=== PATIENT | male | born 1960 | race Caucasian/White ===

== ENCOUNTER 2016-08-28 00:03 | Emergency (ER) | payer OTHER | END 2016-08-28 04:00 | disposition home or self-care (01) | LOC: ER1 00:03 | DX: K04.7 Periapical abscess without sinus (principal); E07.9 Disorder of thyroid, unspecified; G40.909 Epilepsy, unspecified, not intractable, without status epilepticus; Z88.5 Allergy status to narcotic agent; Z79.899 Other long term (current) drug therapy; Z85.528 Personal history of other malignant neoplasm of kidney | CPT/HCPCS: 41800; 99282 ==

== ENCOUNTER 2021-10-13 12:33 | Inpatient (IN) | payer OTHER ==
[~2021-10-13] VITALS: Ht 172.7 cm; Wt 84.8 kg
[~2021-10-13 12:33] MED LIST: CEFEPIME HCL2 GM INJ; DILANTIN100 MG PO; DURAGESIC1 EAC3 TD; KLONOPIN TAB 00.5 MG PO; MEGACE 400400 MG/10 PO; MEGACE TAB 40 M40 MG PO; MULTI-VITAMIN1 EACH PO; OXYCODONE HCL15 MG PO; PHENOBARBITAL32.4 MG PO; PROAIR HFA8.5 GM INH; ROPINIROLE HCL2 MG PO; SENNA8.6 MG PO; SYNTHROID100 MCG PO; VANCOMYCIN1 GM/2002 IV
[2021-10-13 13:24] LABS: HEMOGLOBIN 14.3 gm/dl (14.0-17.5); RED BLOOD COUNT 4.36 M/UL (4.20-5.50); WHITE BLOOD COUNT 16.6 K/UL (4.5-11.0)
[2021-10-13 13:54] LABS: BUN/CREATININE RATIO 30 (0-10)
[2021-10-14] MEDS ORDERED: GABAPENTIN600 MG PO (02:21)
[2021-10-14 02:42] LABS: HEMOGLOBIN 11.8 gm/dl (14.0-17.5); RED BLOOD COUNT 3.69 M/UL (4.20-5.50); WHITE BLOOD COUNT 6.6 K/UL (4.5-11.0)
[2021-10-14 02:44] LABS: BUN/CREATININE RATIO 26 (0-10)
[2021-10-14] MEDS ORDERED: ACETAMINOPHEN500 MG PO (11:19)
[2021-10-14] MEDS ORDERED: IBU800 MG PO (11:20)
[2021-10-14] MEDS ORDERED: HYDROXYZINE HCL25 MG PO (11:20)
[2021-10-14] MEDS ORDERED: METFORMIN HCL500 MG PO (11:22)
[2021-10-14] MEDS ORDERED: NICODERM CQ1 EAC2 TD (11:23)
[2021-10-14] MEDS ORDERED: ONDANSETRON ODT8 MG PO (11:24)
[2021-10-14] MEDS ORDERED: MECLIZINE HCL25 MG PO (11:24)
[2021-10-14 14:56] LABS: CANDIDA ALBICANS Not Detected (Negative); CANDIDA KRUSEI Not Detected (Negative); CANDIDA TROPICALIS Not Detected (Negative); ESCHERICHIA COLI Not Detected (Negative); HAEMOPHILUS INFLUENZAE Not Detected (Negative); KLEBSIELLA OXYTOCA Not Detected (Negative); KLEBSIELLA PNEUMONIAE Not Detected (Negative); KPC-CARBAPENEM-RESISTANCE GENE Not Detected (Negative); PROTEUS Not Detected (Negative); PSEUDOMONAS AERUGINOSA Not Detected (Negative); SERRATIA MARCESANS Not Detected (Negative); STAPHYLOCOCCUS AUREUS Not Detected (Negative); STREP AGALACTIAE (GROUP B) Not Detected (Negative); STREP PYOGENES (GROUP A) Not Detected (Negative); STREPTOCOCCUS Not Detected (Negative); vanA/B (VANCOMYCIN RESIST GENE Not Detected (Negative)
[2021-10-14 16:30] LABS: STAPHYLOCOCCUS DETECTED (Negative)
[2021-10-15 05:42] LABS: HEMOGLOBIN 11.7 gm/dl (14.0-17.5); RED BLOOD COUNT 3.6 M/UL (4.20-5.50); WHITE BLOOD COUNT 7.6 K/UL (4.5-11.0)
[2021-10-15 06:14] LABS: BUN/CREATININE RATIO 20 (0-10)
[2021-10-16 03:10] LABS: HEMOGLOBIN 11.4 gm/dl (14.0-17.5); RED BLOOD COUNT 3.5 M/UL (4.20-5.50); WHITE BLOOD COUNT 5.9 K/UL (4.5-11.0)
[2021-10-16 04:34] LABS: BUN/CREATININE RATIO 21 (0-10)
[2021-10-17 04:16] LABS: HEMOGLOBIN 11.3 gm/dl (14.0-17.5); RED BLOOD COUNT 3.46 M/UL (4.20-5.50); WHITE BLOOD COUNT 5.1 K/UL (4.5-11.0)
[2021-10-17 05:11] LABS: BUN/CREATININE RATIO 23 (0-10)
[2021-10-17] MEDS ORDERED: CEFAZOLIN 2 GM (11:37)
[2021-10-18 03:10] LABS: HEMOGLOBIN 11.7 gm/dl (14.0-17.5); RED BLOOD COUNT 3.55 M/UL (4.20-5.50); WHITE BLOOD COUNT 5.5 K/UL (4.5-11.0)
[2021-10-18 04:15] LABS: BUN/CREATININE RATIO 28 (0-10)
== END 2021-10-18 15:23 | disposition home health service (06) | DRG 563 ==
LOC: ER1 12:33 → CDU 15:54 → M/S 17:22
PROVIDERS: Emergency Medicine; Internal Medicine; ADMIT Internal Medicine
PROC: B24BZZZ Ultrasonography of Heart with Aorta (ICD-10-PCS; principal; 2021-10-17)
DX: S42.292A Other displaced fracture of upper end of left humerus, initial encounter for closed fracture (principal); Z20.822 Contact with and (suspected) exposure to COVID-19; S32.050A Wedge compression fracture of fifth lumbar vertebra, initial encounter for closed fracture; S22.070A Wedge compression fracture of T9-T10 vertebra, initial encounter for closed fracture; B95.61 Methicillin susceptible Staphylococcus aureus infection as the cause of diseases classified elsewhere; G40.909 Epilepsy, unspecified, not intractable, without status epilepticus; E03.9 Hypothyroidism, unspecified; W18.30XA Fall on same level, unspecified, initial encounter; G89.29 Other chronic pain; Y92.092 Bedroom in other non-institutional residence as the place of occurrence of the external cause; Z85.53 Personal history of malignant neoplasm of renal pelvis; Z83.3 Family history of diabetes mellitus; Z88.6 Allergy status to analgesic agent; Z98.890 Other specified postprocedural states
CPT/HCPCS: ECHO; 36415; 70450; 71111; 72072; 72100; 72125; 72170; 73030; 80048; 80053; 80202; 81001; 82550; 82553; 83036; 83735; 84132; 84439; 84443; 84484; 85025; 85027; 85610; 85730; 87040; 87077; 87150; 87186; 93005; 93306; 97116; 97116-GP-CQ; 97162; 97166; 97535; 99285; C1751; G0378; J0690; J1170; J2405; J3370; J7070; U0002